=== PATIENT | female | born 1970 | race African-American/Black ===

== ENCOUNTER 2017-06-12 05:34 | Emergency (ER) | payer MEDICAID ==
[~2017-06-12] VITALS: Ht 162.6 cm; Wt 105.0 kg
[~2017-06-12 05:34] MED LIST: AMLO1CAP; ATEN-42; COM10; ENAL5TAB75; PRAV20TA; SERT25TA; TRAM50TA3
[2017-06-12 08:34] VITALS: BP 130/72
== END 2017-06-12 08:38 | disposition home or self-care (01) ==
LOC: ER 05:34
DX: T16.2XXA Foreign body in left ear, initial encounter (principal); I10 Essential (primary) hypertension; J45.909 Unspecified asthma, uncomplicated; X58.XXXA Exposure to other specified factors, initial encounter; Y93.89 Activity, other specified; Y92.89 Other specified places as the place of occurrence of the external cause
CPT/HCPCS: 99284

== ENCOUNTER 2018-08-04 19:20 | Emergency (ER) | payer MEDICAID ==
[~2018-08-04] VITALS: Ht 167.6 cm; Wt 91.0 kg
[2018-08-04 19:24] VITALS: BP 132/84
== END 2018-08-05 00:15 | disposition left against medical advice (07) ==
LOC: ER 19:20
DX: Z53.21 Procedure and treatment not carried out due to patient leaving prior to being seen by health care provider (principal)